=== PATIENT | female | born 1995 | race Two or more races ===

== ENCOUNTER 2018-01-24 12:57 | Emergency (ER) | payer MEDICAID ==
[~2018-01-24] VITALS: Ht 167.6 cm; Wt 72.1 kg
[2018-01-24 13:06] VITALS: BP 124/84
[2018-01-24 14:13] LABS: Basophils # (auto) 0 uL; Basophils % (auto) 0.1 % (0.0-2.0); Eosinophils # (auto) 0.2 uL; Eosinophils % (auto) 2.1 % (0.0-7.0); Hematocrit 45.3 % (36.0-46.0); Hemoglobin 15.2 g/dL (12.2-16.2); Lymphocytes # (auto) 2.7 uL; Lymphocytes % (auto) 25.9 % (10.0-50.0); Mean Corpuscular Hemoglobin 30.5 pg (28.0-32.0); Mean Corpuscular Hgb Conc. 33.6 g/dL (32.0-36.0); Mean Corpuscular Volume 90.7 fL (80.0-100.0); Monocytes # (auto) 0.4 uL; Monocytes % (auto) 4.2 % (0.0-12.0); Neutrophils # (auto) 7.1 uL; Neutrophils % (auto) 67.7 % (37.0-80.0); Platelet Count (auto) 383 10^3/uL (140-450); Red Cell Distribution Width 13.8 % (11.8-14.3); White Blood Cell 10.5 10^3/uL (4.4-10.8)
[2018-01-24 14:35] LABS: Urine Bacteria NONE SEEN /hpf (None Seen); Urine Blood Negative /uL (Negative); Urine Mucus FEW (None Seen); Urine Specific Gravity 1.025 (1.001-1.035); Urine WBC 5 /hpf (0 - 5)
[2018-01-24] MEDS ORDERED: IBUPROFEN 600 MG TAB PO ONE (17:12)
== END 2018-01-24 16:58 | disposition home or self-care (01) ==
LOC: ER 12:57
DX: N39.0 Urinary tract infection, site not specified (principal); R42 Dizziness and giddiness; Z88.0 Allergy status to penicillin
CPT/HCPCS: 36415; 81001; 84702; 85025

== ENCOUNTER 2018-04-26 09:26 | Emergency (ER) | payer SELFPAY ==
[~2018-04-26] VITALS: Ht 165.1 cm; Wt 81.6 kg
[2018-04-26] MEDS ORDERED: SODIUM CHLORIDE 0.9% 1,000 ML IV ONE ×2 (09:32)
[2018-04-26 10:02] LABS: Basophils # (auto) 0 uL; Basophils % (auto) 0.4 % (0.0-2.0); Eosinophils # (auto) 0.3 uL; Eosinophils % (auto) 3.2 % (0.0-7.0); Hematocrit 42.4 % (36.0-46.0); Hemoglobin 14.2 g/dL (12.2-16.2); Lymphocytes % (auto) 29.8 % (10.0-50.0); Mean Corpuscular Hemoglobin 30.8 pg (28.0-32.0); Mean Corpuscular Hgb Conc. 33.6 g/dL (32.0-36.0); Mean Corpuscular Volume 91.5 fL (80.0-100.0); Monocytes # (auto) 0.5 uL; Monocytes % (auto) 4.6 % (0.0-12.0); Neutrophils # (auto) 6.3 uL; Platelet Count (auto) 338 10^3/uL (140-450); Red Blood Cells 4.63 10^6/uL (4.0-5.20); Red Cell Distribution Width 13.2 % (11.8-14.3); White Blood Cell 10.2 10^3/uL (4.4-10.8)
[2018-04-26 10:19] LABS: Alanine Aminotransferase 94 U/L (13-56); Albumin 3.3 g/dL (3.4-5.0); Anion Gap 10 (5-15); Aspartate Aminotransferase 42 U/L (15-37); BUN/Creatinine Ratio 16.7; Blood Urea Nitrogen 12 mg/dL (7-18); Calcium 8.6 mg/dL (8.5-10.1); Carbon Dioxide 23 mmol/L (21-32); Chloride 106 mmol/L (98-107); GFR African American 130 mL/min; GFR Non-African American 108 mL/min; Glucose 87 mg/dL (74-106); Sodium 139 mmol/L (136-145)
[2018-04-26 10:21] LABS: Alkaline Phosphatase 126 U/L (45-117); Bilirubin, Total 0.4 mg/dL (0.2-1.0); Total Protein 7.6 g/dL (6.4-8.2)
[2018-04-26 11:42] VITALS: BP 120/75
[2018-04-26] MEDS ORDERED: IBUPROFEN 800 MG TAB PO ONE ×2 (12:05→12:15)
== END 2018-04-26 11:42 | disposition home or self-care (01) ==
LOC: EDBD 09:26 → ER 09:26
DX: N20.0 Calculus of kidney (principal); R94.5 Abnormal results of liver function studies; Z88.0 Allergy status to penicillin
CPT/HCPCS: 36415; 80053; 84484; 84702; 85025; 96360; 96361; 99284; J7030

== ENCOUNTER 2019-05-10 14:44 | Emergency (ER) | payer MEDICAID ==
[~2019-05-10] VITALS: Ht 167.6 cm; Wt 66.7 kg
[2019-05-10] MEDS ORDERED: ZYRTEC PO STA (16:38)
[2019-05-10] MEDS ORDERED: SODIUM CHLORIDE 0.9% 500 ML IV ONE (16:38)
[2019-05-10] MEDS ORDERED: FAMOTIDINE 20 MG TAB PO ONE (16:45)
[2019-05-10] MEDS ORDERED: ACETAMINOPHEN 500 MG TAB PO ONE (16:45)
[2019-05-10] MEDS ORDERED: predniSONE 20 MG TAB PO ONE (17:15)
[2019-05-10 17:53] LABS: Basophils # (auto) 0 uL; Basophils % (auto) 0.3 % (0.0-2.0); Eosinophils # (auto) 0.1 uL; Eosinophils % (auto) 0.7 % (0.0-7.0); Hematocrit 40.9 % (36.0-46.0); Hemoglobin 13.8 g/dL (12.2-16.2); Lymphocytes # (auto) 3.3 uL; Lymphocytes % (auto) 22.4 % (10.0-50.0); Mean Corpuscular Hemoglobin 31.5 pg (28.0-32.0); Mean Corpuscular Hgb Conc. 33.8 g/dL (32.0-36.0); Mean Corpuscular Volume 93.2 fL (80.0-100.0); Monocytes # (auto) 0.6 uL; Monocytes % (auto) 4.3 % (0.0-12.0); Neutrophils # (auto) 10.8 uL; Neutrophils % (auto) 72.3 % (37.0-80.0); Platelet Count (auto) 283 10^3/uL (140-450); Red Blood Cells 4.39 10^6/uL (4.0-5.20); Red Cell Distribution Width 14.1 % (11.8-14.3); White Blood Cell 14.9 10^3/uL (4.4-10.8)
[2019-05-10 18:24] LABS: Urine Bacteria NONE SEEN /hpf (None Seen); Urine Blood Negative /uL (Negative); Urine Mucus FEW (None Seen); Urine WBC 3 /hpf (0 - 5)
[2019-05-10] MEDS: ONDANSETRON HCL 4 MG/2 ML VIAL IV ONE ×2 (19:02→19:13)
[2019-05-10] MEDS ORDERED: AZITHROMYCIN 250 MG TAB PO ONE (20:15)
[2019-05-10 21:30] VITALS: BP 116/74
== END 2019-05-10 22:12 | disposition home or self-care (01) ==
LOC: ER 14:44
DX: O20.0 Threatened abortion (principal); O99.711 Diseases of the skin and subcutaneous tissue complicating pregnancy, first trimester; L50.9 Urticaria, unspecified; O99.511 Diseases of the respiratory system complicating pregnancy, first trimester; J32.9 Chronic sinusitis, unspecified; O21.8 Other vomiting complicating pregnancy; Z3A.11 11 weeks gestation of pregnancy
CPT/HCPCS: 36415; 76801; 81001; 84702; 85025; 94761; 96361; 96374; 99284; J2405; J7030; J7512

== ENCOUNTER 2019-07-11 12:18 | Emergency (ER) | payer MEDICAID ==
[~2019-07-11] VITALS: Ht 167.6 cm; Wt 68.0 kg
[2019-07-11 13:37] LABS: Urine Bacteria NONE SEEN /hpf (None Seen); Urine Blood Negative /uL (Negative); Urine Mucus FEW (None Seen); Urine WBC 3 /hpf (0 - 5)
[2019-07-11 15:32] VITALS: BP 101/64
== END 2019-07-11 15:35 | disposition home or self-care (01) ==
LOC: ER 12:21
DX: O99.612 Diseases of the digestive system complicating pregnancy, second trimester (principal); O23.42 Unspecified infection of urinary tract in pregnancy, second trimester; Z3A.20 20 weeks gestation of pregnancy
CPT/HCPCS: 36415; 76805; 81001; 84702

== ENCOUNTER 2019-07-13 14:10 | Observation (INO) | payer MEDICAID ==
[2019-07-13] MEDS ORDERED: PREN-96 PO (15:27)
== END 2019-07-13 15:35 | disposition home or self-care (01) | DRG 566 ==
LOC: LDRP 14:10
PROVIDERS: ADMIT Specialist; ATTEND Specialist
DX: O26.892 Other specified pregnancy related conditions, second trimester (principal); R10.2 Pelvic and perineal pain; Z3A.20 20 weeks gestation of pregnancy
CPT/HCPCS: 76815; G0378; 59025; 81002

== ENCOUNTER 2019-09-26 15:40 | Observation (INO) | payer MEDICAID ==
[~2019-09-26 15:40] MED LIST: PREN-96 PO
[2019-09-26] MEDS ORDERED: TERBUTALINE SULFATE 1 MG/ML 1ML VIAL SC ONE (17:00)
[2019-09-26] MEDS ORDERED: TERBUTALINE SULFATE 1 MG/ML 1ML VIAL SC SCH (18:00)
== END 2019-09-26 18:00 | disposition home or self-care (01) | DRG 566 ==
LOC: LDRP 15:40
PROVIDERS: ADMIT Obstetrics & Gynecology; ATTEND Obstetrics & Gynecology
DX: O26.893 Other specified pregnancy related conditions, third trimester (principal); R10.12 Left upper quadrant pain; Z3A.31 31 weeks gestation of pregnancy
CPT/HCPCS: 59025; 81002; 96372; G0378; J3105

== ENCOUNTER 2019-10-02 12:50 | Observation (INO) | payer MEDICAID | END 2019-10-02 13:37 | disposition home or self-care (01) | DRG 563 | LOC: LDRP 12:50 | PROVIDERS: ADMIT Obstetrics & Gynecology; ATTEND Obstetrics & Gynecology | DX: O60.03 Preterm labor without delivery, third trimester (principal); Z3A.32 32 weeks gestation of pregnancy | CPT/HCPCS: 59025; 81002; G0378 ==

== ENCOUNTER 2019-10-09 13:09 | Observation (INO) | payer MEDICAID ==
[~2019-10-09] VITALS: Ht 30.5 cm; Wt 0.5 kg
[2019-10-09] MEDS ORDERED: BETAMETHASONE ACET (6MG/ML) 5ML VIAL IM ONE (14:00)
[2019-10-09] MEDS ORDERED: NIF10C PO (17:05)
== END 2019-10-09 14:27 | disposition home or self-care (01) | DRG 563 ==
LOC: LDRP 13:09
PROVIDERS: ADMIT Obstetrics & Gynecology; ATTEND Obstetrics & Gynecology
DX: O60.03 Preterm labor without delivery, third trimester (principal); Z3A.33 33 weeks gestation of pregnancy
CPT/HCPCS: 59025; 81002; 96372; G0378; J0702

== ENCOUNTER 2019-10-10 15:40 | Observation (INO) | payer MEDICAID ==
[~2019-10-10] VITALS: Ht 167.6 cm; Wt 76.7 kg
[~2019-10-10 15:40] MED LIST changes: +NIF10C PO
[2019-10-10] MEDS ORDERED: BETAMETHASONE ACET (6MG/ML) 5ML VIAL IM ONE (16:00)
== END 2019-10-10 16:50 | disposition home or self-care (01) | DRG 563 ==
LOC: LDRP 15:40
PROVIDERS: ADMIT Specialist; ATTEND Specialist
DX: O60.03 Preterm labor without delivery, third trimester (principal); Z3A.33 33 weeks gestation of pregnancy
CPT/HCPCS: 59025; 81002; 96372; G0378

== ENCOUNTER 2019-10-15 14:00 | Observation (INO) | payer MEDICAID ==
[~2019-10-15 14:00] MED LIST changes: -NIF10C PO
== END 2019-10-15 14:50 | disposition home or self-care (01) | DRG 861 ==
LOC: LDRP 14:00
PROVIDERS: ADMIT Obstetrics & Gynecology; ATTEND Obstetrics & Gynecology
DX: Z34.83 Encounter for supervision of other normal pregnancy, third trimester (principal); Z3A.33 33 weeks gestation of pregnancy
CPT/HCPCS: 59025; 81002; G0378

== ENCOUNTER 2019-10-22 13:00 | Observation (INO) | payer MEDICAID | END 2019-10-22 14:00 | disposition home or self-care (01) | DRG 563 | LOC: LDRP 13:00 | PROVIDERS: ADMIT Obstetrics & Gynecology; ATTEND Obstetrics & Gynecology | DX: O60.03 Preterm labor without delivery, third trimester (principal); Z3A.34 34 weeks gestation of pregnancy | CPT/HCPCS: 59025; 81002; G0378 ==

== ENCOUNTER 2019-10-30 13:47 | Observation (INO) | payer MEDICAID | END 2019-10-30 15:07 | disposition home or self-care (01) | DRG 563 | LOC: LDRP 13:47 | PROVIDERS: ADMIT Obstetrics & Gynecology; ATTEND Obstetrics & Gynecology | DX: O60.03 Preterm labor without delivery, third trimester (principal); Z3A.35 35 weeks gestation of pregnancy | CPT/HCPCS: 59025; 81002; G0378 ==

== ENCOUNTER 2019-11-27 20:00 | Observation (INO) | payer MEDICAID | END 2019-11-27 21:30 | disposition home or self-care (01) | DRG 566 | LOC: LDRP 20:00 | PROVIDERS: ADMIT Obstetrics & Gynecology; ATTEND Obstetrics & Gynecology | DX: O62.9 Abnormality of forces of labor, unspecified (principal); Z3A.39 39 weeks gestation of pregnancy | CPT/HCPCS: 59025; 81002; G0378 ==

== ENCOUNTER 2019-12-04 11:40 | Observation (INO) | payer MEDICAID | END 2019-12-04 13:30 | disposition home or self-care (01) | DRG 566 | LOC: LDRP 11:40 | PROVIDERS: ADMIT Specialist; ATTEND Specialist | DX: O26.893 Other specified pregnancy related conditions, third trimester (principal); L29.9 Pruritus, unspecified; O48.0 Post-term pregnancy; Z3A.41 41 weeks gestation of pregnancy | CPT/HCPCS: 59025; 76818; 81002; G0378 ==